=== PATIENT | male | born 1980 | race Caucasian/White ===

== ENCOUNTER 2017-05-30 23:58 | Emergency (ER) | payer SELFPAY ==
[2017-05-31 00:19] VITALS: BP 119/75
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
[2017-05-31] MEDS: DIPH,PERTUSS(ACELL),TET VAC/PF 0.5 ML DISP.SYRIN IM ONE (00:35)
[2017-05-31] MEDS: traMADol HCL 50 MG TABLET PO ONE (00:40)
[2017-05-31] MEDS ORDERED: NEOMYCIN SU/BACITRAC ZN/POLY 1 EACH OINT.PACK TP ONE (00:41)
--- NOTE | 2017-05-31 06:54 | Diagnostic Imaging Report ---
PAMELA MCKENZIE~ [facility] [address] [facility] [address] [address] ~ ~ ~ ~ Report Submission Date: May 31, 2017 12:24:27 AM CDT Patient ~ Study Name: NARENDRA MARIE ~ Date: May 31, 2017 12:08:43 AM CDT ~ Modality Type: CR Gender: M ~ Description: LOWER EXTREMITY : 84 ~ Institution: [facility] Physician: PAMELA MCKENZIE ~ ~ ~ ~ Right knee 3 views History: Pain after injury Findings: Prepatellar soft tissue swelling is present without fracture, dislocation, arthropathy, or focal bone lesion. ~ Electronically signed on May 31, 2017 12:24:27 AM CDT by: Franki MCNALLY
== END 2017-05-31 01:00 | disposition home or self-care (01) ==
LOC: ED 23:58
DX: S80.01XA Contusion of right knee, initial encounter (principal); S80.211A Abrasion, right knee, initial encounter; X58.XXXA Exposure to other specified factors, initial encounter; Y93.9 Activity, unspecified; Y99.9 Unspecified external cause status
CPT/HCPCS: 73560; 90471; 90715; 99284